=== PATIENT | male | born 1990 | race American Indian/Alaskan Native ===

== ENCOUNTER 2018-03-28 17:22 | Inpatient (IN) | payer MEDICAID ==
[2018-03-28 17:24] VITALS: BMI 25.8
--- NOTE | 2018-03-28 17:46 | C.PDOC ---
History Of Present Illness 27 years old male presents to ED for complaints of feeling depressed. Patient states he wants to "hang himself." Patient admits to smoking PCP today. Patient is currently eating a sandwich and is comfortable in the ER. <Yaron Toscano - Last Filed: 03/28/18 18:19> History Per: Patient History/Exam Limitations: no limitations Onset/Duration Of Symptoms: Hrs Current Symptoms Are (Timing): Still Present Suicide/Self Injury Attempted (Context): None Modifying Factor(s): Other (PCP) Associated Symptoms: Suicidal Thoughts, Suicidal Plan Involuntary Hold By: None Recent travel outside of the [place]: No <Yaron Toscano - Last Filed: 03/28/18 18:19> <Robinson Stinson - Last Filed: 03/28/18 20:35> Time Seen by Provider: 03/28/18 17:37 Chief Complaint (Nursing): Psychiatric Evaluation Past Medical History Reviewed: Historical Data, Nursing Documentation, Vital Signs Vital Signs: Last Vital Signs Temp 99.4 F 03/28/18 17:31 Pulse 78 03/28/18 17:31 Resp 19 03/28/18 17:31 BP 136/92 H 03/28/18 17:31 Pulse Ox 97 03/28/18 17:31 - Medical History PMH: No Chronic Diseases Family History: States: Unknown Family Hx - Social History Hx Tobacco Use: Yes Hx Alcohol Use: No Hx Substance Use: Yes - Immunization History Hx Tetanus Toxoid Vaccination: No Hx Influenza Vaccination: No Hx Pneumococcal Vaccination: No <Yaron Toscano - Last Filed: 03/28/18 18:19> Vital Signs: Last Vital Signs Temp 99.4 F 03/28/18 17:31 Pulse 78 03/28/18 17:31 Resp 19 03/28/18 17:31 BP 136/92 H 03/28/18 17:31 Pulse Ox 97 03/28/18 18:25 <Robinson Stinson - Last Filed: 03/28/18 20:35> Review Of Systems Constitutional: Negative for: Fever, Chills Gastrointestinal: Negative for: Nausea, Vomiting, Abdominal Pain, Diarrhea Skin: Negative for: Rash Neurological: Negative for: Weakness, Numbness Psych: Negative for: Suicidal ideation <Yaron Toscano - Last Filed: 03/28/18 18:19> Physical Exam - Physical Exam Appears: Well, Non-toxic, No Acute Distress, Other (Comfortable, eating a sandwich ) Skin: Normal Color, Warm, Dry, No Rash Head: Atraumatic, Normacephalic Eye(s): bilateral: Normal Inspection, PERRL, EOMI Oral Mucosa: Moist Neck: Supple Chest: Symmetrical, No Tenderness Cardiovascular: Rhythm Regular, No Murmur Respiratory: Normal Breath Sounds, No Rales, No Rhonchi, No Wheezing Gastrointestinal/Abdominal: Soft, No Tenderness, No Distention, No Guarding, No Rebound Extremity: Normal ROM, No Pedal Edema, No Deformity Extremity: Bilateral: Atraumatic, Normal Color And Temperature, Normal ROM Neurological/Psych: Oriented x3, Normal Speech, Other (No focal deficits ) Gait: Steady <Yaron Toscano - Last Filed: 03/28/18 18:19> ED Course And Treatment - Laboratory Results Result Diagrams: 03/28/18 18:11 O2 Sat by Pulse Oximetry: 97 (RA) Pulse Ox Interpretation: Normal <Yaron Toscano - Last Filed: 03/28/18 18:19> - Laboratory Results Result Diagrams: 03/28/18 18:11 03/28/18 18:11 <Robinson Stinson - Last Filed: 03/28/18 20:35> Medical Decision Making Medical Decision Making: Plan: * Blood work * Urinalysis * Crisis notified <Yaron Toscano - Last Filed: 03/28/18 18:19> Disposition <Yaron Toscano - Last Filed: 03/28/18 18:19> Discussed With : Sidney Naqvi Doctor Will See Patient In The: Hospital Counseled Patient/Family Regarding: Diagnosis - Disposition Disposition Time: 20:34 - POA Present On Arrival: None <Robinson Stinson - Last Filed: 03/28/18 20:35> - Disposition Disposition: HOSPITALIZED Condition: STABLE Forms: [facility] (Hungarian) - Clinical Impression Clinical Impression: Schizoaffective disorder - Scribe Statement The provider has reviewed the documentation as recorded by the Crisibe Laurita Weber All medical record entries made by the Scribe were at my direction and personally dictated by me. I have reviewed the chart and agree that the record accurately reflects my personal performance of the history, physical exam, medical decision making, and the department course for this patient. I have also personally directed, reviewed, and agree with the discharge instructions and disposition. <Yaron Toscano - Last Filed: 03/28/18 18:19>
[2018-03-28 18:14] LABS: BASO % 0.4 % (0.0-2.0); EOS # 0.2 K/uL (0.0-0.7); EOS % 3.8 % (0.0-4.0); LYMPH # 1.2 K/uL (1.0-4.3); LYMPH % 20.2 % (20.0-40.0); MEAN CELL VOLUME 91.3 fL (80.0-94.0); MEAN CORPUSCULAR HEMOGLOBIN 31.1 pg (27.0-31.0); MEAN CORPUSCULAR HGB CONC 34.1 g/dL (33.0-37.0); MEAN PLATELET VOLUME 7.3 fL (7.2-11.7); MONO # 0.4 K/uL (0.0-0.8); NEUT # 4.2 K/uL (1.8-7.0); NEUT % 68.6 % (50.0-75.0); RBC 4.49 Mil/uL (4.40-5.90); RED CELL DISTRIBUTION WIDTH 13.4 % (11.5-14.5); WHITE BLOOD COUNT 6.2 K/uL (4.8-10.8)
[2018-03-28 18:27] LABS: URINE BILIRUBIN NEGATIVE (NEGATIVE); URINE BLOOD 1+ (NEGATIVE); URINE CLARITY Clear (Clear); URINE COLOR Yellow (YELLOW); URINE GLUCOSE (UA) NORMAL (Normal); URINE LEUKOCYTE ESTERASE NEG Leu/uL (Negative); URINE PROTEIN NEGATIVE (NEGATIVE); URINE UROBILINOGEN NORMAL mg/dL (0.2-1.0)
[2018-03-28 18:27] LABS: ALB/GLOB RATIO 1.2 (1.0-2.1); ALBUMIN 4.6 g/dL (3.5-5.0); ALT/SGPT 45 U/L (21-72); AST/SGOT 28 U/L (17-59); BLOOD UREA NITROGEN 9 mg/dL (9-20); CALCIUM 9.4 mg/dl (8.6-10.4); GFR NON-AFRICAN AMERICAN > 60
[2018-03-28 18:36] LABS: BARBITURATES, UR POSITIVE (NEGATIVE); BENZODIAZEPINES, UR POSITIVE (NEGATIVE); OPIATES, UR NEGATIVE (NEGATIVE); PHENCYCLIDINE, UR POSITIVE (NEGATIVE)
[2018-03-28 18:49] LABS: ACETAMINOPHEN < 10.0 ug/mL (10.0-30.0); SALICYLATE < 1.0 mg/dL 1
--- NOTE | 2018-03-28 22:38 | PCM.BM ---
<[place] - Last Filed: 03/28/18 22:31> Treatment Plan Problems - Problems identified on initial assessmt Depression Date Initiated: 03/28/18 Time Initiated: 22:32 Assessment reference: NA Status: Active Substance Abuse Date Initiated: 03/28/18 Time Initiated: 22:32 Assessment reference: NA Status: Active Treatment assets and liabiliti Patient Assests: cooperative, ADL independent, cognitively intact Patient Liabilities: live alone (Lives in homeless alf), poor support system, substance abuse (PCP, Xanax, barbituates), medical problems, legal issue - Milieu Protocol Maintain good personal hygiene: daily Encourage regular showers, daily Remind patient to perform daily oral care, daily Assist patient to perform ADL's Conduct patient checks and document Observation sheet: Q15 minutes Maintain personal safety: every shift Educate patient to report safety concerns to staff, every shift Monitor environment for contraband/sharps Medication safety: Monitor for expected outcome, potential side effects: every shift, Assess barriers to learning: every shift, Assess readiness for medication education: every shift <Jazmyn Hill - Last Filed: 03/29/18 11:18> - Diagnosis (1) Schizoaffective disorder Status: Acute Interventions: 03/29/18 11:17 * Assess/adjust medications daily and /or as needed * See patient on an individual basis 7x/week to assess status of hallucinations * Discuss risks, benefits, side effects and alternatives of medications * (2) Phencyclidine (PCP) use disorder, severe Status: Acute Interventions: 03/29/18 11:18 * Assess 7x/week regarding severity of withdrawal * Educate regarding risks, benefits, side effects and alternatives of medications * Use Motivational Interviewing for abstinence * Use CBT for relapse prevention * Medication management for withdrawal symptoms * Encourage medication assisted treatment *
[2018-03-29 06:12] VITALS: RESP 20; TEMP 97.5; O2SAT 99
[2018-03-29 08:59] VITALS: BP 120/79; PULSE 80
--- NOTE | 2018-03-29 10:51 | PCM.PSYCH ---
Initial Psychiatric Evaluation - Initial Psychiatric Evaluation Type of Admission: Voluntary Legal Status: Capacity Chief Complaint (in patient's own words): I came here to get help.' History of Present Illness and Precipitating Events: Pt is a 27yo male presenting to [facility] due to S/H/I and auditory and visual hallucinations. Pt reports smoking marijuana, PCP and Xanax daily. Pt reports past history of multiple inpatient psychiatric hospitalizations but denies any history of follow up with any psychiatrist. Pt remained disorganized and internally preoccupied. Patient reports of depressed mood, feelings of hopelessness and helplessness, poor sleep and poor appetite. Pt reports I am at my limit and I just want this to end. Pt reports a history of suicide attempts via hanging, self- strangulation, self-inflicted gunshot, and suffocation, last attempt 03/26/2018. Pt reports I m dangerous, I have a long list of people I want to hurt. Pt explained plans he had to kill someone who stole from him. Pt reports AVH. Pt reports visual hallucinations I have visions and I see people. Pt reports auditory hallucinations, explaining he hears a devil on one shoulder and an ebonie on the other. Pt reports that when he goes through withdrawal, my body expels. I start to get better, mind, memories, and thoughts start to come back. Pt reports a previous detox admission at [facility] in 02/2018. PMH: None Current Medications: Active Medications Generic Name Dose Route Start Last Admin Trade Name Freq PRN Reason Stop Dose Admin Benztropine Mesylate 1 mg 03/28/18 22:16 Cogentin PO Q6H PRN EPS SYMPTOMS Haloperidol 5 mg 03/28/18 22:16 Haldol PO Q6H PRN Agitation Lorazepam 1 mg 03/28/18 22:16 Ativan PO Q6H PRN Anxiety Quetiapine Fumarate 400 mg 03/28/18 22:30 03/28/18 22:27 Seroquel PO 400 mg HS JANUARY Administration Past Psychiatric History - Past Psychiatric History Previous Treatment History: Inpatient Pertinent Medical Hx (Current Medical&Sleep Prob, Allergies): Allergies Allergy/AdvReac Type Severity Reaction Status Date / Time shellfish derived Allergy SWELLING Verified 03/28/18 17:35 Review of Systems - Review of Systems All systems: reviewed and no additional remarkable complaints except - Psychiatric Psychiatric: Anxiety, Auditory Hallucinations, Irritability, Suicidal Ideation Mental Status Examination - Personal Presentation Personal Presentation: Looks stated age - Affect Affect: Broad - Motor Activity Motor Activity: Psychomotor Agitation - Reliability in Providing Information Reliability in Providing Information: Poor, due to alteration in thoughts, Poor, due to altered mood - Speech Speech: Disorganized - Mood Mood: Depressed, Anxious - Formal Thought Process Formal Thought Process: Hallucinations, Delusions, Paranoia, Loosening of associations - Hallucinations/Delusions Hallucinations: Visual, Auditory Delusions: Persecution - Obsessions/Compulsions Obsessions: No Compulsions: No - Cognitive Functions Orientation: Person, Place, Situation, Time Sensorium: Alert Attention/Concentration: Attentive Abstract Thinking: [place] Estimate of Intelligence: Below average Judgement: Imparied, as evidence by: Poor judgement, Imparied, as evidence by: Lack of insight into illness - Risk Risk: Suicidal, Homicidal, Diminished functioning - Limitations Limitations: Living alone DSM 5 DX - DSM 5 DSM 5 Diagnosis: Bipolar disorder mixed severe with psychotic fx PCP use d/o- severe Cannabis use d/o- severe Sed hyp use d/o- severe - Recommended/Plan of Treatment Treatment Recommendations and Plan of Treatment: Bipolar disorder mixed severe with psychotic fx PCP use d/o- severe Cannabis use d/o- severe Sed hyp use d/o- severe Trazodone Ativan prn Gabapentin for augmentation if needed As needed medications All risks, benefits and alternatives of the meds discussed, and the pt agreed and understood. Attend groups and activities Supportive therapy and psychoeducation LA for abstinence CBT for relapse prevention Encourage MAT Refer to rehab or IOP, and self-help groups Smoking cessation with LA Nicotine patch if needed
--- NOTE | 2018-03-31 23:03 | PCM.PYCHDC ---
Mental Status Examination - Mental Status Examination Orientation: Person, Place, Situation, Time Memory: Intact Mood: Neutral Affect: Constricted Speech: Soft Attention: WNL Concentration: WNL Association: WNL Fund of Knowledge: WNL Formal Thought Process: No Impairment Description of patient's judgement and insight: partially impaired Psychotic Thoughts and Behaviors: denies any AVH Suicidal Ideation: No Current Homicidal Ideation?: No Discharge Summary - Discharge Note Reason for Hospitalization: Pt is a 27yo male presenting to [facility] due to S/H/I and auditory and visual hallucinations. Pt reports smoking marijuana, PCP and Xanax daily. Pt reports past history of multiple inpatient psychiatric hospitalizations but denies any history of follow up with any psychiatrist. Pt remained disorganized and internally preoccupied. Patient reports of depressed mood, feelings of hopelessness and helplessness, poor sleep and poor appetite. Pt reports I am at my limit and I just want this to end. Pt reports a history of suicide attempts via hanging, self- strangulation, self-inflicted gunshot, and suffocation, last attempt 03/26/2018. Pt reports I m dangerous, I have a long list of people I want to hurt. Pt explained plans he had to kill someone who stole from him. Pt reports AVH. Pt reports visual hallucinations I have visions and I see people. Pt reports auditory hallucinations, explaining he hears a devil on one shoulder and an ebonie on the other. Pt reports that when he goes through withdrawal, my body expels. I start to get better, mind, memories, and thoughts start to come back. Pt reports a previous detox admission at [facility] in 02/2018. Consultations:: List each consultation separately and include: 1. Reason for request. 2. Findings. 3. Follow-up Summary of Hospital Course include:: 1. Description of specific treatment plan utilized for patients during their course of treatmen. 2. Summarize the time- course for resolution of acute symptoms and/or regressed behaviors. 3. Describe issues identified and worked on during hospitalization. 4. Describe medication utilized. 5. Describe medical problems identified and treated. 6. Reassessment of suicide risk Summary of Hospital Course: Today patient (pt) became increasingly irritable and demanded to get signed out AMA. He said he is feeling better now and he has to get finger printed tomorrow for work. However, patient denied any feelings of hopelessness, helplessness, and worthlessness, denied any problem with the sleep or appetite, denied suicidal ideation or homicidal ideation. Pt denied any auditory or visual hallucinations. He denied any withdrawal symptoms. - Diagnosis (1) Schizoaffective disorder Status: Acute (2) Phencyclidine (PCP) use disorder, severe Status: Acute - Final Diagnosis (DSM 5) Condition upon Discharge: STABLE DSM 5: Bipolar disorder mixed severe with psychotic fx PCP use d/o- severe Cannabis use d/o- severe Sed hyp use d/o- severe Disposition: AGAINST MEDICAL ADVICE Follow-up Treatment Plan: Followup: He was discharged to the [facility]. Education: Pt was educated and counseled about the risks and benefits of taking and not taking medications. Pt was educated and counseled about the risks of drinking and abusing drugs. Pt was educated and counseled to go to the ER or call 911 if pt develop suicidal ideation or homicidal ideation, worsening of symptoms or severe side effects of the meds. - Smoking Cessation Smoking Cessation Medication prescribed: No - Antipsychotic Medications Pt discharged on 2 or more routine antipsychotic medications: No
== END 2018-03-29 13:13 | disposition left against medical advice (07) | DRG 770 ==
LOC: C.ER 17:22 → C.5E 20:44
DX: F16.20 Hallucinogen dependence, uncomplicated (principal); R45.851 Suicidal ideations; F25.9 Schizoaffective disorder, unspecified; R45.850 Homicidal ideations; Z59.0 Homelessness; Z91.5 Personal history of self-harm; F41.9 Anxiety disorder, unspecified; Z62.810 Personal history of physical and sexual abuse in childhood